=== PATIENT | female | born 1995 | race Caucasian/White ===

== ENCOUNTER 2017-08-08 20:39 | Emergency (ER) | payer OTHER ==
[2017-08-08 20:59] LABS: Bilirubin Negative (Negative); Blood, Urine Large (Negative); Glucose, Urine (Dipstick) Negative (Negative); Ketone, Urine Negative (Negative); Nitrite Negative (Negative); Protein, Urine (Dipstick) Negative (Neg-Trace); Urobilinogen 0.2 mg/dL (0.2-1.0)
[2017-08-08 21:02] LABS: Bacteria/HPF 2+ HPF (None Seen)
[2017-08-08] MEDS ORDERED: Phenazopyridine HCl 97.5 MG TABLET ONE ×2 (21:10)
[2017-08-08] MEDS ORDERED: Nitrofurantoin Macrocrystal 50 MG CAP ONE (21:10)
== END 2017-08-08 21:11 | disposition home or self-care (01) ==
LOC: SCSER 20:39
DX: N39.0 Urinary tract infection, site not specified (principal)
CPT/HCPCS: 81003; 81015; 81025; 87077; 87086; 87186; 99283